=== PATIENT | female | born 2000 | race Caucasian/White ===

== ENCOUNTER 2018-07-09 10:21 | Emergency (ER) | payer OTHER ==
[~2018-07-09] VITALS: Ht 165.1 cm; Wt 72.6 kg
--- NOTE | 2018-07-09 10:28 | NUR ---
PT AMBULATED TO ER BED 01
[2018-07-09 11:07] VITALS: BP 103/88
[2018-07-09] MEDS ORDERED: PROMETHAZINE 25 MG/ML VIAL IM ONE (11:15)
[2018-07-09] MEDS ORDERED: ALBUTEROL SULFATE/IPRATROPIU 3 ML SOL IH ONE (11:15)
--- NOTE | 2018-07-09 11:21 | NUR ---
ACCOMPANIED BY MOTHER C/O HACKING COUGH, BODYACHES, FEVER >1 WK DENIES N/V/D; SKIN IS PINK/WARM/DRY; AAOX4 WITH EVEN AND STEADY GAIT; LUNGS CLEAR BL; HR EVEN AND REGULAR; PT DENIES ANY FEVER, CP, SOB, AT THIS TIME; VSS; PATIENT POSITIONED FOR COMFORT; HOB ELEVATED; BEDRAILS UP X2; BED DOWN. ER MD MADE AWARE OF PT STATUS.
--- NOTE | 2018-07-09 11:35 | NUR ---
ADMITTING DX: SEEKING MEDICAL ATTENTION HX: ASTHMA LOC AWAKE AND ALERT RESPONSIVE TO BUSINESS PROCESS EXPERT VERBAL COMMANDS EDUCATION PROVIDED TO PATIENT WITH ACKNOWLEDGEMENT ON HHN THERAPY AND RESPIRATORY DRUG HHN THERAPY GIVEN ORDERED ENCOURAGED DEEP BREATHING AND COUGH DURING THERAPY TOLERATED WELL WITHOUT INCIDENT
[2018-07-09 12:44] VITALS: BP 103/88
--- NOTE | 2018-07-09 12:45 | NUR ---
Patient discharged with v/s stable. Written and verbal after care instructions given and explained. Patient alert, oriented and verbalized understanding of instructions. Ambulatory with steady gait. All questions addressed prior to discharge. ID band removed. Patient advised to follow up with PMD. Rx of azithromycin, promethazine, prednisone given. Patient educated on indication of medication including possible reaction and side effects. Opportunity to ask questions provided and answered.
== END 2018-07-09 12:45 | disposition home or self-care (01) ==
LOC: MED 10:21
DX: J32.9 Chronic sinusitis, unspecified (principal); J11.1 Influenza due to unidentified influenza virus with other respiratory manifestations; J45.909 Unspecified asthma, uncomplicated
CPT/HCPCS: 94640; 96372; 99283; J2550; J7620

== ENCOUNTER 2021-03-23 02:27 | Emergency (ER) | payer OTHER ==
[~2021-03-23] VITALS: Ht 162.6 cm; Wt 68.0 kg
[2021-03-23 02:53] VITALS: BP 124/86
[2021-03-23] MEDS ORDERED: KETOROLAC 60 MG/2 ML VIAL IM ONE ×2 (03:00→03:03)
--- NOTE | 2021-03-23 05:21 | NUR ---
PT AMBULATED TO BED #8
[2021-03-23] MEDS ORDERED: IMI50 PO (05:36)
--- NOTE | 2021-03-23 05:43 | NUR ---
Patient discharged with v/s stable. Written and verbal after care instructions given and explained. Patient alert, oriented and verbalized understanding of instructions. Ambulatory with steady gait. All questions addressed prior to discharge. ID band removed. Patient advised to follow up with PMD. Rx of IMITREX given. Patient educated on indication of medication including possible reaction and side effects. Opportunity to ask questions provided and answered.
== END 2021-03-23 05:43 | disposition home or self-care (01) ==
LOC: MED 02:27
DX: G43.909 Migraine, unspecified, not intractable, without status migrainosus (principal); J45.909 Unspecified asthma, uncomplicated; Z79.899 Other long term (current) drug therapy
CPT/HCPCS: 70450; 96372; 99284; J1885